=== PATIENT | male | born 1950 | race Asian ===

== ENCOUNTER 2019-03-14 05:55 | Day surgery (SDC) | payer MEDICAID, MEDICARE ==
[~2019-03-14] VITALS: Ht 172.7 cm; Wt 90.0 kg
[~2019-03-14 05:55] MED LIST: SODIUM CHLORIDE 0.9% 1,000 ML IV ONE
[2019-03-14] MEDS ORDERED: BENZOCAINE 20% 50 MCG/SPRAY 57 GM TP ONE (05:56)
[2019-03-14] MEDS ORDERED: LIDOCAINE 2% 30 ML JELLY TP ONE (05:56)
[2019-03-14] MEDS ORDERED: LIDOCAINE 4% 50 ML SOLUTION TP ONE (05:56)
[2019-03-14] MEDS ORDERED: ALBUTEROL SULFATE 2.5 MG/0.5 ML NEB SOLUTION NEB ONE (05:56)
[2019-03-14] MEDS ORDERED: SODIUM CHLORIDE 0.9% 1,000 ML IV ONE (06:30)
[2019-03-14 06:49] LABS: GLUCOMETER DEV NAME(LOC) SDS.; GLUCOSE,POINT OF CARE 134 MG/DL (70-110)
[2019-03-14] MEDS ORDERED: METO50 PO (06:59)
[2019-03-14] MEDS ORDERED: BECL10.6 IH (06:59)
[2019-03-14] MEDS ORDERED: LOSA50TA64 PO (06:59)
[2019-03-14] MEDS ORDERED: ATOR20TA86 PO (06:59)
[2019-03-14] MEDS ORDERED: MONT10TA21 PO (06:59)
[2019-03-14] MEDS ORDERED: BACL10TA PO (06:59)
[2019-03-14] MEDS ORDERED: METF-960 PO (06:59)
[2019-03-14] MEDS ORDERED: ESCI20TA PO (06:59)
[2019-03-14] MEDS ORDERED: ALBU8.5H8 IH (06:59)
[2019-03-14] MEDS ORDERED: GLIP2.5ER PO (06:59)
[2019-03-14] MEDS ORDERED: ALLO300 PO (06:59)
[2019-03-14] MEDS ORDERED: GABA-531 PO (06:59)
[2019-03-14] MEDS ORDERED: COLC0.6T67 PO (06:59)
[2019-03-14] MEDS ORDERED: TIOT4MIS2 IH (06:59)
[2019-03-14] MEDS ORDERED: PRED10 PO (06:59)
[2019-03-14] MEDS ORDERED: ASPI-1182 PO (06:59)
[2019-03-14] MEDS ORDERED: AMLO-511 PO (07:00)
[2019-03-14] MEDS ORDERED: RANI150T7 PO (07:00)
[2019-03-14] MEDS ORDERED: MIDAZOLAM HCL 2 MG/2 ML VIAL ONE (07:54)
[2019-03-14] MEDS ORDERED: FentaNYL CITRATE-PF 100 MCG/2 ML VIAL ONE (07:54)
[2019-03-14] MEDS ORDERED: MethylPREDNISolone SOD SUCC 125 MG/2 ML VIAL IVP ONE (08:45)
[2019-03-14] MEDS ORDERED: OXYGEN THERAPY IH SCH (20:00)
== END 2019-03-14 10:15 | disposition home or self-care (01) ==
LOC: SURGERY 05:55
PROVIDERS: ATTEND Internal Medicine Critical Care Medicine
DX: J38.4 Edema of larynx (principal); B37.0 Candidal stomatitis; I10 Essential (primary) hypertension; M10.9 Gout, unspecified; E78.00 Pure hypercholesterolemia, unspecified; M19.90 Unspecified osteoarthritis, unspecified site; F17.210 Nicotine dependence, cigarettes, uncomplicated; Z95.5 Presence of coronary angioplasty implant and graft; Z72.89 Other problems related to lifestyle
CPT/HCPCS: 31623; 31624; 71045; 82962; 87015; 87070; 87077; 87101; 87186; 87205; 87206; 87220; 88108; 88312; 93005; J2250; J2930; J3010; J7030